=== PATIENT | female | born 1955 | race Caucasian/White ===

== ENCOUNTER → 2020-05-31 | Day surgery (SDC) | payer OTHER ==
[~2020-05-31] MED LIST: BUPIVACAINE HCL 0.5% INJ 30 ML VIAL INJ ONE; CALCET TABLET1 EACH PO; CEFAZOLIN SOD 1 GM/NS 50ML 50 ML IV ONE; DEXAMETHASONE SOD PHOS INJ 4 MG/ML VIAL ONE; FENTANYL CITRATE/PF 100MCG/2 ML INJ ONE; FISH OIL 1,0001 EAC2 PO; LIDOCAINE HCL 2% LOCAL INJ 5 ML SDV VIAL INJ ONE; MIDAZOLAM HCL 2 MG/2 ML VIAL ONE; ONDANSETRON HCL INJ 2MG/ML 2ML 2 MG/ML VIAL ONE; PROPOFOL IV EMULSION 10 MG/ML 20 ML VIAL ONE; SEVOFLURANE INHAL SOLN 250 ML PEN BTL ONE; VIT D3 PO
[2020-05-31 08:30] VITALS: BP 109/66
--- NOTE | 2020-05-31 09:38 | Operative Report ---
DATE OF PROCEDURE: 05/31/2020 SURGEON: Margarette Rudolph DPM PREOPERATIVE DIAGNOSIS: Left hallux varus. POSTOPERATIVE DIAGNOSIS: Left hallux varus. PLANNED PROCEDURE: Left Garza bunionectomy with implant. FOOD SERVICE AMBASSADOR: Margarette Rudolph DPM. ANESTHESIA: General with a postoperative block consisting of 15 mL 0.5% Marcaine plain mixed with 1 mL of dexamethasone phosphate. HEMOSTASIS: Pneumatic thigh tourniquet set at 350 mmHg for a total time of approximately 30 minutes. MATERIALS: One size 2 [id number] toe reference MPJ implant, 2-0 Vicryl, 3-0 Vicryl, 4-0 nylon. ESTIMATED BLOOD LOSS: Less than 10 mL. PATHOLOGY: None. PROCEDURE NOTE: The patient was seen in the preoperative waiting room and the correct procedure and site was identified. The patient was brought to the operative room, placed on the operating table in supine position. General anesthesia was initiated. At this time, a well-padded pneumatic tourniquet was placed about the patient's left thigh. The left foot, ankle and leg was then scrubbed, prepped, and draped in the usual aseptic manner. The left foot, ankle, leg was then exsanguinated with an Esmarch bandage and a pneumatic thigh tourniquet was inflated to 350 mmHg for a total time of approximately 30 minutes. Attention was directed to the dorsal aspect of the patient's left 1st metatarsophalangeal joint where there was noted to be in a varus deformity with a dorsal and medial dislocation. Utilizing a #15 blade, incision was made directly over the previous incision site over the metatarsophalangeal joint medial to the extensor hallucis longus tendon. The incision was carried through subcutaneous tissue them from deep or underlying structures. All vital and neurovascular structures were identified, retracted medially and laterally. All bleeders were cauterized or ligated as deemed necessary. At this time, it should be noted there to be significant amount of capsular adhesions noted an extremely taut extensor hallucis longus tendon. Utilizing a #15 blade, the extensor hallucis longus tendon was Z-lengthened and sutured together utilizing 3-0 Vicryl in a lengthened position. Next, a linear capsulotomy was performed at the level of the 1st metatarsophalangeal joint to allow for good visualization. There was noted to be large bony overgrowth on the medial aspect of the proximal phalanx. Next, utilizing a sagittal saw, the distal articular cartilage of the 1st metatarsal head was excised and passed off to the back table as well as the base of the proximal phalanx. The wound was then copiously irrigated with sterile saline. Next, per manufacture protocol, guidewire was placed into the 1st metatarsal head and down the long axis of the 1st metatarsal. This was confirmed via intraoperative fluoroscopy. Next, per manufacture protocol, the proximal reamer was placed into the 1st metatarsal head. Next, a guidewire was placed into the proximal phalanx, followed by the reamer. Next, the grommets were placed and tamped into the correct location. A size 2 toe reference implant was placed and good anatomical alignment as well as reduction of varus deformity is noted. This was confirmed via intraoperative fluoroscopy. The wound was then again copiously irrigated with sterile saline. Capsule and deep tissue were reapproximated with 2-0 Vicryl, subcutaneous tissue with 3-0 Vicryl, the skin was closed using a running interlocking stitch with 4-0 nylon. The patient tolerated the procedure and anesthesia well. The patient was transferred to the postoperative recovery unit with vital signs stable and vascular status intact. The patient was monitored there for a short period time before being sent home with the following written and oral instructions. 1. Keep the dressing clean, dry, and intact. 2. The patient is to remain partial weightbearing in a postop shoe to avoid excessive ambulation until being seen in the office. 3. The patient is given the office number and instructed to contact us if any problems arise. Dictated by Margarette Rudolph DPM S JAYLIN Perez (Charley)/MODL /[id number]
== END | disposition home or self-care (01) ==
LOC: OR 05:26
PROVIDERS: ATTEND Podiatrist Foot & Ankle Surgery
DX: M20.32 Hallux varus (acquired), left foot (principal); R00.1 Bradycardia, unspecified; I44.0 Atrioventricular block, first degree; Z01.810 Encounter for preprocedural cardiovascular examination; Z01.812 Encounter for preprocedural laboratory examination; Z11.59 Encounter for screening for other viral diseases
CPT/HCPCS: 28291; 93005; J0690; J1100; J2001; J2250; J2405; J2704; J3010; L8642; U0002

== ENCOUNTER → 2022-06-05 | Day surgery (SDC) | payer MEDICARE, OTHER ==
[2022-06-01 15:21] LABS: BASOPHILS # (AUTO) 0.1 (0.0-0.1); BASOPHILS % 0.8 % (0.0-1.0); EOSINOPHILS # (AUTO) 0.1 (0.0-0.4); EOSINOPHILS % 2.2 % (0.0-6.0); HEMATOCRIT 40.7 % (34.2-44.1); HEMOGLOBIN 12.8 g/dL (12.0-16.0); LYMPHOCYTES # (AUTO) 2.8 (1.0-3.2); LYMPHOCYTES % 46.3 % (18.0-39.1); MEAN CORPUSCULAR HEMOGLOBIN 30.8 pg (28-32); MEAN CORPUSCULAR HGB CONC 31.4 g/dL (31-35); MEAN CORPUSCULAR VOLUME 97.8 fL (81-99); MONOCYTES # (AUTO) 0.4 (0.2-0.8); MONOCYTES % 6.7 % (4.4-11.3); NEUTROPHILS # (AUTO) 2.6 (2.1-6.9); NEUTROPHILS % 43.7 % (38.7-80.0); PLATELET COUNT 249 x10e3/uL (140-360); RED BLOOD COUNT 4.16 x10e6/uL (3.6-5.1); RED CELL DISTRIBUTION WIDTH 12.5 % (11.7-14.4)
[~2022-06-05] MED LIST changes: +BUPIVACAINE 0.25% 30ML SDV ONE; -BUPIVACAINE HCL 0.5% INJ 30 ML VIAL INJ ONE; -CEFAZOLIN SOD 1 GM/NS 50ML 50 ML IV ONE; +DEXAMETHASONE SOD PHOS INJ 4 MG/ML SDV ONE; -DEXAMETHASONE SOD PHOS INJ 4 MG/ML VIAL ONE; -LIDOCAINE HCL 2% LOCAL INJ 5 ML SDV VIAL INJ ONE; +POVIDONE IODINE 0.05% 0.05 % ML PO ONE; -SEVOFLURANE INHAL SOLN 250 ML PEN BTL ONE; +VITAMIN C1000 MG PO
[2022-06-05 08:25] VITALS: BP 101/68
== END | disposition home or self-care (01) ==
LOC: OR 05:24
PROVIDERS: ATTEND Podiatrist Foot & Ankle Surgery
DX: M72.0 Palmar fascial fibromatosis [Dupuytren] (principal); Z01.810 Encounter for preprocedural cardiovascular examination; Z01.812 Encounter for preprocedural laboratory examination; Z01.818 Encounter for other preprocedural examination
CPT/HCPCS: 28039; 36415; 71046; 85025; 88304; 88342; 93005; J0690; J1100; J2250; J2405; J3010